=== PATIENT | female | born 1940 | race Caucasian/White ===

== ENCOUNTER 2017-05-21 04:54 | Inpatient (IN) | payer OTHER ==
[~2017-05-21] VITALS: Ht 167.6 cm; Wt 65.7 kg
[~2017-05-21 04:54] MED LIST: NOHOMEMEDS
[2017-05-21 05:31] LABS: ALBUMIN 4.1 g/dL (3.2-4.8); CHLORIDE 104 mEq/L (99-109); POTASSIUM 4.2 mEq/L (3.7-5.4); SODIUM 135 mEq/L (136-147)
[2017-05-21 05:33] LABS: GLUCOSE 142 mg/dL (70-99)
[2017-05-21 05:34] LABS: TOTAL PROTEIN 7.1 g/dL (6.4-8.3)
[2017-05-21 05:35] LABS: TOTAL BILIRUBIN 0.9 mg/dL (0.0-1.0)
[2017-05-21 05:37] LABS: ALKALINE PHOSPHATASE 91 IU/L (3-129); CREATININE 0.7 mg/dL (0.6-1.3); GFR ESTIMATE (CALCULATED) > 59 mL/min/
[2017-05-21 05:38] LABS: UREA NITROGEN (BUN) 19 mg/dL (9-23)
[2017-05-21 05:39] LABS: AST (GOT) 19 IU/L (2-34)
[2017-05-21 05:40] LABS: ALT (GPT) 33 IU/L (3-49)
[2017-05-21 05:52] LABS: HEMATOCRIT 42.5 % (36.0-46.0); HEMOGLOBIN 14.9 G/DL (11.9-15.5); MCH 30.8 PG (29.0-34.0); MCHC 35.1 G/DL (30.0-36.0); MCV 87.8 FL (83-99); PLATELET COUNT 368 K/uL (156-360); RBC DIS.WIDTH-CV 11.9 % (11.8-14.6); RBC DIS.WIDTH-SD 38.2 % (39-53); RED BLOOD COUNT 4.84 M/uL (3.80-5.20); WHITE BLOOD COUNT 9.8 K/uL (4.1-10.2)
[2017-05-21 06:54] LABS: LIPASE 16 U/L (1.0-51.0)
[2017-05-21] MEDS ORDERED: MULTIVITAMIN1 EAC2 PO (10:43)
[2017-05-21] MEDS ORDERED: BAYER ASPIRIN PO (10:44)
[2017-05-21] MEDS ORDERED: B-COMPLEX-VITA1 EACH PO (10:44)
[2017-05-21] MEDS ORDERED: EYE DROPS BOTH EYES (10:45)
[2017-05-21 15:20] VITALS: BP 175/90
[2017-05-21 19:50] VITALS: BP 159/91
[2017-05-21 21:46] VITALS: BP 142/78
[2017-05-21 22:55] VITALS: BP 145/86
[2017-05-22 04:00] VITALS: BP 144/82
[2017-05-22 06:49] LABS: HEMATOCRIT 39.1 % (36.0-46.0); HEMOGLOBIN 13.2 G/DL (11.9-15.5); MCH 30.1 PG (29.0-34.0); MCHC 33.8 G/DL (30.0-36.0); MCV 89.3 FL (83-99); PLATELET COUNT 307 K/uL (156-360); RBC DIS.WIDTH-CV 11.9 % (11.8-14.6); RBC DIS.WIDTH-SD 38.5 % (39-53); RED BLOOD COUNT 4.38 M/uL (3.80-5.20)
[2017-05-22 07:17] LABS: CHLORIDE 102 MEQ/L (99-109); CREATININE 0.6 MG/DL (0.6-1.3); GFR ESTIMATE (CALCULATED) > 59 mL/min/; GLUCOSE 171 mg/dL (70-99); SODIUM 137 MEQ/L (136-147); UREA NITROGEN (BUN) 13 mg/dL (9-23)
[2017-05-22 07:35] VITALS: BP 180/80
[2017-05-22 17:28] VITALS: BP 151/78
[2017-05-22 19:30] VITALS: BP 140/86
[2017-05-22 23:45] VITALS: BP 156/80
[2017-05-23 03:29] VITALS: BP 159/77
[2017-05-23 06:25] LABS: HEMATOCRIT 34.9 % (36.0-46.0); HEMOGLOBIN 11.6 G/DL (11.9-15.5); MCH 30.3 PG (29.0-34.0); MCHC 33.2 G/DL (30.0-36.0); MCV 91.1 FL (83-99); PLATELET COUNT 259 K/uL (156-360); RBC DIS.WIDTH-CV 12.1 % (11.8-14.6); RBC DIS.WIDTH-SD 40.6 % (39-53); RED BLOOD COUNT 3.83 M/uL (3.80-5.20); WHITE BLOOD COUNT 9.2 K/uL (4.1-10.2)
[2017-05-23 06:45] VITALS: BP 149/79
[2017-05-23 06:55] LABS: CHLORIDE 100 MEQ/L (99-109); CREATININE 0.5 MG/DL (0.6-1.3); GFR ESTIMATE (CALCULATED) > 59 mL/min/; GLUCOSE 123 mg/dL (70-99); POTASSIUM 3.7 MEQ/L (3.7-5.4); SODIUM 136 MEQ/L (136-147); UREA NITROGEN (BUN) 11 mg/dL (9-23)
[2017-05-23 11:41] VITALS: BP 176/98
[2017-05-23 15:20] VITALS: BP 165/88
[2017-05-23 19:44] VITALS: BP 148/75
[2017-05-24 00:44] VITALS: BP 144/75
[2017-05-24 03:58] VITALS: BP 142/72
[2017-05-24 06:00] LABS: HEMATOCRIT 34.9 % (36.0-46.0); HEMOGLOBIN 11.9 G/DL (11.9-15.5); MCH 30.7 PG (29.0-34.0); MCHC 34.1 G/DL (30.0-36.0); MCV 89.9 FL (83-99); PLATELET COUNT 277 K/uL (156-360); RBC DIS.WIDTH-CV 11.9 % (11.8-14.6); RBC DIS.WIDTH-SD 38.6 % (39-53); RED BLOOD COUNT 3.88 M/uL (3.80-5.20); WHITE BLOOD COUNT 8.4 K/uL (4.1-10.2)
[2017-05-24 06:19] LABS: CHLORIDE 104 MEQ/L (99-109); CREATININE 0.5 MG/DL (0.6-1.3); GFR ESTIMATE (CALCULATED) > 59 mL/min/; GLUCOSE 117 mg/dL (70-99); POTASSIUM 3.5 MEQ/L (3.7-5.4); SODIUM 139 MEQ/L (136-147); UREA NITROGEN (BUN) 6 mg/dL (9-23)
[2017-05-24 09:00] VITALS: BP 170/90
[2017-05-24 15:57] VITALS: BP 165/87
[2017-05-24 19:40] VITALS: BP 138/82
[2017-05-24 23:20] VITALS: BP 146/90
[2017-05-25 06:24] LABS: HEMATOCRIT 35.3 % (36.0-46.0); MCH 30.5 PG (29.0-34.0); MCV 89.8 FL (83-99); PLATELET COUNT 306 K/uL (156-360); RBC DIS.WIDTH-CV 11.9 % (11.8-14.6); RBC DIS.WIDTH-SD 38.9 % (39-53); RED BLOOD COUNT 3.93 M/uL (3.80-5.20); WHITE BLOOD COUNT 6.1 K/uL (4.1-10.2)
[2017-05-25 07:10] LABS: CHLORIDE 104 MEQ/L (99-109); CREATININE 0.5 MG/DL (0.6-1.3); GFR ESTIMATE (CALCULATED) > 59 mL/min/; GLUCOSE 111 mg/dL (70-99); POTASSIUM 3.9 MEQ/L (3.7-5.4); SODIUM 139 MEQ/L (136-147); UREA NITROGEN (BUN) 5 mg/dL (9-23)
[2017-05-25 07:47] VITALS: BP 184/94
[2017-05-25 09:45] VITALS: BP 162/96
[2017-05-25] MEDS ORDERED: AMLODIPINE BESYL5 MG PO (09:48)
[2017-05-25] MEDS ORDERED: OXYCODONE HCL5 MG PO (09:48)
== END 2017-05-25 12:20 | disposition home or self-care (01) | DRG 329 ==
LOC: EME 04:54 → SDC 12:32 → ENRESERV 12:33 → 2SOUTH 12:35 → 2EAST 12:35 → ENRESERV 14:50 → 2EAST 15:20
PROVIDERS: Surgery
PROC: 0DT80ZZ Resection of Small Intestine, Open Approach (ICD-10-PCS; principal; 2017-05-21)
DX: K56.609 Unspecified intestinal obstruction, unspecified as to partial versus complete obstruction (principal); K65.1 Peritoneal abscess; R18.8 Other ascites; I16.0 Hypertensive urgency; D69.1 Qualitative platelet defects; I44.7 Left bundle-branch block, unspecified; I10 Essential (primary) hypertension; Z90.49 Acquired absence of other specified parts of digestive tract; Z79.82 Long term (current) use of aspirin; Z88.0 Allergy status to penicillin
CPT/HCPCS: 71045; 74177; 80048; 80053; 81003; 83605; 83690; 85027; 88307; 93005; 94799; 99281; 99285; J0330; J1170; J1650; J2250; J2270; J2405; J2710; J3010; J3480; J7030; J7120; S0028; S0074